=== PATIENT | male | born 2000 | race Caucasian/White ===

== ENCOUNTER 2025-08-27 09:35 | Emergency (ER) | payer OTHER ==
[~2025-08-27] VITALS: Ht 180.3 cm; Wt 81.6 kg
[2025-08-27] MEDS ORDERED: ACET-683 PO (09:43)
[2025-08-27] MEDS ORDERED: NAPR-1405 PO (09:43)
[2025-08-27] MEDS: CEFDINIR 300 MG CAP PO ONE (12:16)
[2025-08-27 12:44] VITALS: BP 133/79; TEMP 97.9; O2SAT 99
== END 2025-08-27 12:46 | disposition home or self-care (01) ==
LOC: M ED 09:35
DX: J02.9 Acute pharyngitis, unspecified (principal); R59.0 Localized enlarged lymph nodes; Z79.1 Long term (current) use of non-steroidal anti-inflammatories (NSAID); Z79.899 Other long term (current) drug therapy